=== PATIENT | male | born 1955 | race Caucasian/White ===

== ENCOUNTER → 2022-09-12 09:46 | Outpatient (CLI) | payer MEDICARE, SELFPAY ==
--- NOTE | 2022-09-12 09:51 | US_ITS ---
FINAL REPORT CLINICAL HISTORY: ELEVATED LIVER ENZYMES - GB surgically absent COMPARISON: None FINDINGS: Sonographic images of the right upper quadrant were obtained. The pancreas is partially obscured.The liver has an unremarkable appearance. The gallbladder has been surgically removed. There is no evidence of biliary ductal dilatation.The common duct measures 5mm. Limited images of the right kidney are unremarkable. IMPRESSION: Unremarkable right upper quadrant ultrasound post cholecystectomy. Reviewed, Interpreted and Dictated by Myles Harris III, MD Transcribed by Fiona Yo Authenticated and [facility]
== END ==
PROVIDERS: PCP Nurse Practitioner Family; Visit Provider Nurse Practitioner Family
DX: R74.8 Abnormal levels of other serum enzymes (principal)
CPT/HCPCS: 76705